=== PATIENT | male | born 1940 | race Caucasian/White ===

== ENCOUNTER 2020-04-10 20:13 | Emergency (ER) | payer OTHER, SELFPAY ==
[~2020-04-10] VITALS: Ht 172.7 cm; Wt 83.0 kg
[2020-04-10 20:13] VITALS: BP 0/0
[~2020-04-10 20:13] MED LIST: ACET-1182 PO; ACET-9525 PO; ASCO500T95 PO; ASPI-1822 PO; ASPI81CT95 PO; ATOR20TA40 PO; DOCU-299 PO; FAMO-90 PO; GLIP5TAB4 PO; LEVO0.114 PO; LEVO0.118 PO; LISI-420 PO; LORA10TA19 PO; MELA1TAB32 PO; METF1000 PO; METO25TA PO; MULT-2112 PO; PANT40PD7 PO; POLY17PD46 PO; TAMS0.4C96 PO
--- NOTE | 2020-04-10 20:13 | NUR ---
ACLS protocol initiated.
--- NOTE | 2020-04-10 20:13 | NUR ---
2011- PT BIBA FULL ARREST, EMS PERFORING COMPRESSIONS. TAKEN TO BED 6. DR. KEYES AND RT AT BEDSIDE.
--- NOTE | 2020-04-10 20:18 | NUR ---
PT PRONOUNCED AT THIS TIME BY DR. KEYES
--- NOTE | 2020-04-10 20:38 | NUR ---
Dr. Talbot, PCP, made aware.
--- NOTE | 2020-04-10 20:44 | NUR ---
s/w Cris from [facility], referral #: [id number]
--- NOTE | 2020-04-10 21:46 | NUR ---
s/w Daniel from [facility], was told that Surgical Supply Assistant will be giving a call back. No ETA
--- NOTE | 2020-04-10 22:10 | NUR ---
s/w next of kin, rell Lee to release body to [facility]
[2020-04-10 22:17] VITALS: BP 0/0
--- NOTE | 2020-04-10 22:46 | NUR ---
s/w Double Back Operator Viktor, body ok to be released. # [phone]
--- NOTE | 2020-04-10 23:29 | NUR ---
SPOKE W/ Aj from [facility], WAS UPDATED W/ CORONERS CASE RELEASE NUMBER AND THAT DAUGHTER HAS BEEN UPDATED ON PT STATUS. PER AJ SHE WILL CONTACT OUR OFFICE IN 1 HR FOR FOLLOW UP .
--- NOTE | 2020-04-11 00:15 | NUR ---
S/W Yuridia from [facility] . ETA for body pickup is 1.5-2 hours.
--- NOTE | 2020-04-11 02:05 | NUR ---
MORTUARY TRANSPORT AT BEDSIDE
--- NOTE | 2020-04-11 02:15 | NUR ---
[facility]
--- NOTE | 2020-04-11 02:24 | NUR ---
[facility] CALLED TO GET INFO ON STATUS OF PT [facility]. MADE AWARE THAT THEY HAVE BEEN PICKED UP BY HOME.
== END 2020-04-10 20:18 | disposition expired ==
LOC: MED 20:13
DX: I46.9 Cardiac arrest, cause unspecified (principal)
CPT/HCPCS: 92950; 99285